=== PATIENT | female | born 1955 | race Caucasian/White ===

== ENCOUNTER 2018-06-01 01:50 | Emergency (ER) | payer BC ==
[~2018-06-01] VITALS: Ht 165.1 cm; Wt 62.6 kg
[~2018-06-01 01:50] MED LIST: ASPI-484 PO; CLOP75TA52 PO; FAMO20TA5 PO; FEXO180T72 PO; FURO20TA3 PO; GABA100C7 PO; LEVO75TA6 PO; LISI-414 PO; METO-236 PO; NITR0.4T SL; POLY17PO5 PO; PRAV20TA2 PO; VALS40TA2 PO
[2018-06-01 02:10] VITALS: BP 132/73
--- NOTE | 2018-06-01 02:42 | ER.PDOC ---
General Chief Complaint: Extremities Stated Complaint: L ANKLE PAIN Time seen by MD: 02:37 Source: patient Exam Limitations: no limitations History of Present Illness Initial Comments Left ankle pain from hitting it 2 days ago. Where: home Severity: moderate Modifying Factors: pain on movement Allergies: Coded Allergies: Penicillins (Verified Allergy, Unknown, Anaphylaxis Shock, 09/10/16) Uncoded Allergies: IV DYE (Allergy, Unknown, Anaphylaxis Shock, 11/25/15) Home Meds Reported Medications Nitroglycerin (NITROSTAT) 0.4 Mg Tab.subl, 0.4 MG SL DAILY, #30 3 Refills 12/17/16 Valsartan (DIOVAN) 40 Mg Tablet, 1 TAB PO DAILY, #90 TAB 1 Refill 12/16/16 Gabapentin (GABAPENTIN) 100 Mg Capsule, 2 CAP PO TID, #90 CAP 2 Refills 12/16/16 Famotidine (FAMOTIDINE) 20 Mg Tablet, 1 TAB PO DAILY, #60 TAB 5 Refills 12/16/16 Pravastatin Sodium (PRAVASTATIN SODIUM) 20 Mg Tablet, 1 TAB PO DAILY, #30 TAB 5 Refills 12/16/16 Levothyroxine Sodium (LEVOTHYROXINE SODIUM) 75 Mcg Tablet, 1 TAB PO DAILY, #30 TAB 5 Refills 09/10/16 Aspirin (ASPIR 81) 81 Mg Tablet.dr, 2 TAB PO DAILY, #30 TAB 5 Refills 09/10/16 Clopidogrel Bisulfate (PLAVIX) 75 Mg Tablet, 1 TAB PO DAILY, #90 TAB 1 Refill 01/02/16 Furosemide (FUROSEMIDE) 20 Mg Tablet, 1 TAB PO DAILY, #90 TAB 1 Refill 01/02/16 Past Medical History Medical History: cardiac problems, diabetes, high cholesterol, heart attack, hypertension, thyroid disease Surgical History: cardiac cath, appendectomy, back, cholecystectomy, hysterectomy, neck, stent LMP (females 10-50): hysterectomy Social History Smoking: cigarettes, less than 1 pack/day Alcohol Use: rarely Drug Use: none Review of Systems Constitutional: no symptoms reported EENTM: no symptoms reported Respiratory: no symptoms reported Cardiovascular: no symptoms reported Gastrointestinal: no symptoms reported Musculoskeletal: see HPI All Other Systems: Reviewed and Negative Physical Exam General Appearance: Alert, No Apparent Distress Foot: nml inspection, non-tender Ankle: tenderness (left), swelling (left lateral aspect) Gait: normal Neuro: sensation nml, motor nml Vascular: no vascular compromise Tendons: tendon function nml Leg/Knee/Thigh: uninjured above ankle Skin: warm/dry Head/ENT: nml inspection, pharynx nml Neck/Back: nml inspection, non-tender Resp/CVS: no resp distress Abdomen: non-tender, no organomegaly EKG/XRAY/CT/US XRAY: ankle (Normal left ankle) Departure Time of Disposition: 02:40 Disposition: 01 HOME, SELF-CARE Impression: Primary Impression: Left ankle injury Condition: Stable Referrals: CASTRO JOHN DO (PCP) PRIMARY CARE PROVIDER Additional Instructions: Ibuprofen F/U with your PCP in 1 week Duration or Time Spent with Pa: 30 mins Problem Qualifiers Primary Impression: Left ankle injury Encounter type: initial encounter Qualified Codes: S99.912A - Unspecified injury of left ankle, initial encounter MACIE KERNS MD Jun 01, 2018 02:42
--- NOTE | 2018-06-01 02:55 | DIREP ---
PROCEDURE:XRAY ANKLE MIN 3VWS-LT COMPARISON:[facility], [place], XRAY CHEST SINGLE VW, 12/16/2016, 03:17 PM. INDICATIONS:Pain from hitting it FINDINGS: BONES:Normal. JOINTS:Normal. SOFT TISSUES:Normal. OTHER:No additional findings. CONCLUSION:No acute bony pathology in the left ankle. Dictated by: Mark Underwood M.D. on 06/01/2018 at 02:53 AM
[2018-06-01 03:00] VITALS: BP 115/67
[2018-06-01 03:13] VITALS: BP 115/67
== END 2018-06-01 03:00 | disposition home or self-care (01) ==
LOC: ER 01:50
DX: S99.912A Unspecified injury of left ankle, initial encounter (principal); E11.9 Type 2 diabetes mellitus without complications; E78.00 Pure hypercholesterolemia, unspecified; I25.2 Old myocardial infarction; I10 Essential (primary) hypertension; E07.9 Disorder of thyroid, unspecified; F17.210 Nicotine dependence, cigarettes, uncomplicated; Z91.041 Radiographic dye allergy status; Z79.82 Long term (current) use of aspirin; Z79.899 Other long term (current) drug therapy; Z95.818 Presence of other cardiac implants and grafts; Z88.0 Allergy status to penicillin; Z90.49 Acquired absence of other specified parts of digestive tract; Z90.710 Acquired absence of both cervix and uterus; Z98.890 Other specified postprocedural states; Z79.01 Long term (current) use of anticoagulants; Z79.84 Long term (current) use of oral hypoglycemic drugs; W22.8XXA Striking against or struck by other objects, initial encounter; Y93.89 Activity, other specified; Y92.098 Other place in other non-institutional residence as the place of occurrence of the external cause; Y99.8 Other external cause status
CPT/HCPCS: 99284; 73610-LT

== ENCOUNTER 2019-01-15 05:55 | Day surgery (SDC) | payer BC ==
[2019-01-14 14:38] VITALS: BP 113/62
--- NOTE | 2019-01-14 14:58 | PCM.EKG ---
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
[2019-01-14 15:07] LABS: BASOPHIL % 0.6 % (0.0-0.2); EOSINOPHIL # 0.5 10^3/uL (0.0-0.2); EOSINOPHIL % 7.2 % (0.0-5.0); HEMOGLOBIN 13.2 g/dL (12.0-15.0); LYMPHOCYTES # 2.7 10^3/uL (1.0-4.8); LYMPHOCYTES % 40.5 % (24.0-44.0); MEAN CELL HGB 34.5 pg (26-34); MEAN CELL HGB CONCENTRATION 34.7 g/dL (33-37); MEAN CORP VOLUME 99.2 fL (78-100); MEAN PLATELET VOLUME 9.3 fL (7.8-11.0); MONOCYTES # 0.7 10^3/uL (0.3-0.8); MONOCYTES % 9.9 % (5.0-12.0); NEUTROPHIL # 2.8 10^3/uL (1.8-7.7); NEUTROPHILS % 41.6 % (41.0-85.0); RED CELL DISTRIBUTION WIDTH 13.5 % (11.5-14.5); WHITE BLOOD CELL 6.7 10^3/uL (4.5-11.0)
[2019-01-14 15:29] LABS: CALCIUM 9.7 mg/dL (8.4-10.5)
[2019-01-15] VITALS (7 sets, daily range): BP systolic 114–163; BP diastolic 65–96
[~2019-01-15] VITALS: Ht 165.1 cm; Wt 61.2 kg
[~2019-01-15 05:55] MED LIST changes: +GABA600T7 PO; +LACTATED RINGERS 1,000 ML ONE; +LEVO88TA5 PO; +MULT-678 PO; +OMEG1CAP2 PO; +PARO20TA4 PO; +PRAV80TA2 PO; +RANO10002 PO
[2019-01-15] MEDS ORDERED: LACTATED RINGERS 1,000 ML IV SCH (06:00)
[2019-01-15] MEDS ORDERED: VALIUM ONE (06:27)
[2019-01-15] MEDS ORDERED: VALIUM PO ONE (06:30)
[2019-01-15] MEDS ORDERED: LIDOCAINE 1% VIAL ONE (06:58)
[2019-01-15] MEDS ORDERED: SODIUM CHLORIDE IR ONE (07:04)
[2019-01-15] MEDS ORDERED: LIDOCAINE 2% VIAL ONE ×2 (07:04→07:28)
[2019-01-15] MEDS ORDERED: XYLOCAINE 2%-EPI 1:100,000 ONE ×2 (07:05→07:19)
[2019-01-15] MEDS ORDERED: DECADRON ONE (07:28)
[2019-01-15] MEDS ORDERED: DILAUDID ONE (07:28)
[2019-01-15] MEDS ORDERED: LACTATED RINGERS 1,000 ML ONE (07:28)
[2019-01-15] MEDS ORDERED: ZOFRAN ONE (07:28)
[2019-01-15] MEDS ORDERED: DIPRIVAN IV ONE (07:29)
[2019-01-15] MEDS ORDERED: SUBLIMAZE ONE (07:29)
[2019-01-15] MEDS ORDERED: SUBLIMAZE IV PRN (10:00)
[2019-01-15] MEDS ORDERED: ZOFRAN IV PRN (10:00)
--- NOTE | 2019-01-15 10:06 | OPH ---
DATE OF SURGERY: 01/15/2019 PREOPERATIVE DIAGNOSIS: Bilateral carpal tunnel syndrome. POSTOPERATIVE DIAGNOSIS: Bilateral carpal tunnel syndrome. OPERATIVE PROCEDURE: Bilateral carpal tunnel release. SURGEON: Moo Mackay MD ANESTHESIA: LMA. TOURNIQUET TIME: On the right is 13 minutes at 300 mmHg, on the left is 13 minutes at 300 mmHg. DRAINS: None. BLOOD LOSS: Total of 10 mL for both procedures. INDICATIONS: The patient is a 63-year-old female with a several-month history of numbness and pain and paresthesias about the median nerve distribution of both hands. She has had problems intermittently, but has gotten worse in the last several months. Her EMGs and nerve conduction studies show moderately severe bilateral carpal tunnel syndrome. The patient wanted to have both hands fixed at the same time and therefore was taken to the operating room today for bilateral carpal tunnel release. She is no better with bracing or anti-inflammatories. DESCRIPTION OF PROCEDURE: The patient was placed on the operating table in the supine position. LMA anesthetic was induced without difficulty. The right upper extremity had a tourniquet applied about the upper arm. Right upper extremity was then sterilely prepped and draped. Right upper extremity had the arm exsanguinated and the tourniquet was inflated to 300 mmHg. The patient had a longitudinal incision made about the base of the palm just ulnar to the thenar crease. The incision was taken through the skin and the subcutaneous tissues. The palmar fascia was opened proximally and a Vansant elevator was passed beneath the transverse carpal ligament. Transverse carpal ligament was then released throughout its entirety. The nerve was inspected and there was no iatrogenic damage. The wounds were irrigated. The skin edges were closed with 2% lidocaine with epinephrine. Wound was closed with interrupted 3-0 Monocryl in a horizontal mattress method. A compressive dressing was applied. The patient then had the tourniquet released. Then, we turned our attention to the left upper extremity. Again, a well-padded tourniquet was placed around the left upper extremity. Left upper extremity was sterilely prepped and draped. Left upper extremity was then exsanguinated with an Esmarch and the tourniquet was inflated to 300 mmHg. The patient had a longitudinal incision made about the base of the palm. The incision was taken through the skin and the subcutaneous tissues. The palmar fascia was identified and opened proximally. A Vansant elevator was passed beneath the transverse carpal ligament and then the transverse carpal ligament was released throughout its entirety. The nerve was inspected and there was no iatrogenic damage. The patient then had the wounds irrigated. The skin edges were injected with 2% lidocaine with epinephrine. The wounds were closed with a 3-0 Ethilon in a horizontal mattress method. Compressive dressing was applied. The patient was extubated in the operating room, sent to recovery in stable condition. Moo Mackay MD DR: AIMEE/dimas JOB# [id number]
[2019-01-15] MEDS ORDERED: TRAM-47 PO (10:09)
[2019-01-15] MEDS ORDERED: EPHEDRINE SULFATE ONE (11:08)
== END 2019-01-15 10:29 | disposition home or self-care (01) ==
LOC: SDC 05:55
PROVIDERS: ATTEND Orthopaedic Surgery
DX: G56.03 Carpal tunnel syndrome, bilateral upper limbs (principal); J44.9 Chronic obstructive pulmonary disease, unspecified; I73.9 Peripheral vascular disease, unspecified; I11.0 Hypertensive heart disease with heart failure; I50.9 Heart failure, unspecified; M19.90 Unspecified osteoarthritis, unspecified site; E11.9 Type 2 diabetes mellitus without complications; I25.2 Old myocardial infarction; F17.210 Nicotine dependence, cigarettes, uncomplicated; K21.9 Gastro-esophageal reflux disease without esophagitis; I25.10 Atherosclerotic heart disease of native coronary artery without angina pectoris; Z88.0 Allergy status to penicillin; Z91.041 Radiographic dye allergy status; Z79.899 Other long term (current) drug therapy; Z95.818 Presence of other cardiac implants and grafts; Z90.710 Acquired absence of both cervix and uterus; Z98.890 Other specified postprocedural states; Z79.82 Long term (current) use of aspirin; Z90.49 Acquired absence of other specified parts of digestive tract; Z79.01 Long term (current) use of anticoagulants; Z80.1 Family history of malignant neoplasm of trachea, bronchus and lung; Z82.49 Family history of ischemic heart disease and other diseases of the circulatory system; Z83.3 Family history of diabetes mellitus
CPT/HCPCS: 36415; 64721; 80053; 85025; 93005; A4217; A4649 ×3; J1100; J1170; J2001 ×3; J2405; J3010; J3490 ×2; J7120 ×2